=== PATIENT | male | born 1935 | race African-American/Black ===

== ENCOUNTER 2016-08-22 11:44 | Emergency (ER) | payer OTHER ==
[~2016-08-22] VITALS: Ht 175.3 cm; Wt 76.8 kg
[~2016-08-22 11:44] MED LIST: AMLODIPINE BESY10 MG PO; COLCHICINE0.6 M1 PO; HYDROCHLOROTH12.5 M3 PO; LISINOPRIL10 MG PO; LISINOPRIL20 MG PO; LO-DOSE ASPIRIN81 M2 PO; PRAVASTATIN SOD20 MG PO; PRINIVIL10 MG PO; PROTONIX40 MG PO; TRAMADOL HCL50 MG PO; TYLENOL EXTRA500 MG PO
[2016-08-22 11:47] VITALS: BP 172/96
[2016-08-22] MEDS ORDERED: MOTRIN800 MG PO (12:56)
== END 2016-08-22 13:32 | disposition home or self-care (01) ==
LOC: EME 11:44
DX: M25.461 Effusion, right knee (principal); M10.9 Gout, unspecified
CPT/HCPCS: 73564; 99281; 99284